=== PATIENT | female | born 1950 | race Hispanic/Latino ===

== ENCOUNTER 2016-07-28 10:39 | Inpatient (IN) | payer MEDICARE, OTHER ==
--- NOTE | 2016-07-28 11:09 | Emergency Department Report ---
ED Lower Extremity HPI - General Chief Complaint: Fall Stated Complaint: FALL Time Seen by Provider: 07/28/16 10:53 Source: patient Mode of arrival: Stretcher Limitations: No Limitations - History of Present Illness MD Complaint: hip injury, thigh injury Onset/Timin -: Sudden, hour(s) Injury: Hip: Right, Pelvis: Right, Thigh: Right, Leg: Right Type of Injury: inversion Place: work Severity: moderate Severity scale (0 -10): 5 Improves With: nothing Worsens With: weight bearing, movement, palpation Context: fall Associated Symptoms: snap/pop sensation, able to partially bear weight. denies : swelling, numbness, tingling, unable to bear weight - Related Data Home Medications Medication Instructions Recorded Confirmed Last Taken No Known Home Medications [No 07/28/16 07/28/16 Unknown Reported Home Medications] Allergies Allergy/AdvReac Type Severity Reaction Status Date / Time No Known Allergies Allergy Verified 07/28/16 12:08 ED Review of Systems ROS: Stated complaint: FALL Other details as noted in HPI Comment: All other systems reviewed and negative ED Past Medical Hx - Past Medical History Previous Medical History?: No - Social History Smoking Status: Never Smoker - Medications Home Medications: Home Medications Medication Instructions Recorded Confirmed Last Taken Type No Known Home Medications [No 07/28/16 07/28/16 Unknown History Reported Home Medications] ED Physical Exam - General Limitations: No Limitations General appearance: alert, in no apparent distress - Head Head exam: Present: atraumatic, normocephalic - Eye Eye exam: Present: normal appearance - ENT ENT exam: Present: mucous membranes moist - Neck Neck exam: Present: normal inspection - Respiratory Respiratory exam: Present: normal lung sounds bilaterally. Absent: respiratory distress - Cardiovascular Cardiovascular Exam: Present: regular rate, normal rhythm. Absent: systolic murmur, diastolic murmur, rubs, gallop - GI/Abdominal GI/Abdominal exam: Present: soft, normal bowel sounds - Extremities Exam Extremities exam: Present: tenderness (tednerness in the groin area / right hip , decreaso rom due to pain), normal capillary refill. Absent: full ROM, pedal edema, joint swelling, calf tenderness - Back Exam Back exam: Present: normal inspection - Neurological Exam Neurological exam: Present: alert, oriented X3 - Psychiatric Psychiatric exam: Present: normal affect, normal mood - Skin Skin exam: Present: warm, dry, intact, normal color. Absent: rash ED Course Vital Signs 07/28/16 07/28/16 10:44 11:48 Pulse Rate 78 Respiratory 16 16 Rate Blood Pressure 134/75 O2 Sat by Pulse 100 100 Oximetry ED Lower Extremity MDM - Lab Data Result diagrams: 07/28/16 12:16 - EKG Data -: EKG Interpreted by Me EKG shows normal: sinus rhythm Rate: normal - EKG Data When compared to previous EKG there are: no significant change Interpretation: no acute changes - Radiology Data Radiology results: report reviewed, image reviewed - Medical Decision Making will need admission for femur fracture/ talk to ortho at 1130am, and agree with plan fro admission, will talk to hospitalist to admit to their service. Critical care attestation.: If time is entered above; I have spent that time in minutes in the direct care of this critically ill patient, excluding procedure time. ED Disposition Clinical Impression: Femur fracture, left Disposition: OP ADMITTED IP TO THIS HOSP Is pt being admited?: Yes Does the pt Need Aspirin: No Condition: Good Referrals: PRIMARY CARE, [Primary Care Provider] - 3-5 Days Time of Disposition: 12:49
--- NOTE | 2016-07-28 11:11 | Admit Criteria Form ---
Admission Criteria Documentation: MUSCULOSKELETAL DISEASE GRG Clinical Indications for Admission to Inpatient Care (Place 'X' for any and all applicable criteria): Hospital admission is needed for appropriate care of the patient because of 1 or more of the following: [ X]I. Fracture, dislocation, or other musculoskeletal injury requiring inpatient care(medical) as indicated by 1 or more of the following(4)(5)(6)(7) [ ]a) Vertebral fracture requiring observation for instability or neurologic compromise (8) [ ]b) Compartment syndrome (proven or cannot be ruled out during observation level of care) (9) [ ]c) Limb-threatening injury [ X]d) Major injury requiring inpatient stabilization such as traction initiation or external fixation before internal fixation or closure of complex or open fracture [ ]e) Major injury requiring inpatient treatment after emergency or observation level care (as appropriate) [ ]f) Severe pain requiring acute inpatient management [ ]g) Injury with suspicion of abuse or neglect (eg., child, dependent elderly) [ ]II. Newly diagnosed or suspected bone, joint, or orthopedic device infection (e.g., osteomyelitis, septic arthritis) needing 1 or more of the following(1)(2)(3) [ ]a) IV antibiotics that cannot be initiated in other than inpatient setting (e.g., patient too unstable or home infusion not available) [ ]b) Device removal or replacement [ ]c) Bone or soft tissue debridement [ ]d) Joint drainage (drain placement or repetitive aspirations) [ ]III. Severe rheumatologic disease (e.g., systemic lupus erythematosus, rheumatoid arthritis) with complications or comorbidities (Also use Optimal Recovery Care Criteria or General Recovery Criteria as appropriate on the basis of predominant condition), including 1 or more of the following( 10)(11)(12)(13) [ ]a) Severe infection (e.g., ELECTROMECHANICAL TECHNOLOGIST infection, sepsis) (14) [ ]b) Respiratory complications, including 1 or more of the following : [ ]i) Pleural effusion with respiratory compromise [ ]ii) Pulmonary hypertension with congestive failure [ ]iii) Respiratory failure [ ]iv) Pulmonary hemorrhage (15) [ ]c) Hematologic disease, including 1 or more of the following: [ ]i) Coagulopathy with bleeding [ ]ii) Thrombosis with hypercoagulable state [ ]iii) Thrombotic thrombocytopenic purpura [ ]d) Cerebritis with seizures, psychosis, or other severe abnormalities [ ]e) Vertebral destruction with monitoring needed for cervical myelopathy& possible respiratory compromise [ ]f) Exacerbation that requires inpatient treatment (e.g., intravenous immunosuppression) (16) [ ]g) Acute renal failure [ ]h) Cerebritis with seizures, psychosis, Altered mental status, or other neurologic abnormalities [ ]i) Pericardial effusion with tamponade [ ]j) Vertebral destruction, with monitoring needed for cervical myelopathy and possible respiratory compromise [ ]IV. Severe vasculitis with complications or comorbidities (Also use Optimal Recovery Care Criteria General Recovery Criteria as appropriate on the basis of predominant condition), including 1 or more of the following(11)(12)(17)(18)(19)(20) [ ]a) Exacerbation that requires inpatient treatment (e.g., intravenous immunosuppression) (19)(21) [ ]b) Pulmonary hemorrhage (15) [ ]c) ELECTROMECHANICAL TECHNOLOGIST vasculitis with seizures, psychosis, Altered mental status that is severe or persistent, or other severe abnormalities (22) [ ]d) Cerebral infarction [ ]e) Gastrointestinal ischemia [ ]f) Gangrene or threatened amputation [ ]g) Renal failure (16) [ ]h) Other significant complications of vasculitis ( eg., tissue or organ ischemia, organ dysfunction ) [ ]V. Severe myopathy as indicated by 1 or more of the following (28)(29) [ ]a) New onset of airway compromise or inability to swallow [ ]b) Respiratory deterioration with observation needed for impending respiratory failure [ ]c) Exacerbation that requires inpatient treatment (e.g., intravenous immunosuppression) [ ]. Severe crystal gout (arthropathy) indicated by 1 or more of the following (23)(24) [ ]a) Severe pain requiring acute inpatient management [ ]b) Exacerbation that requires inpatient treatment (e.g., intravenous treatment) [ ]VII.Rhabdomyolysis and 1 or more of the following (25)(26)(27) [ ]a) Acute renal failure [ ]b) Need for intravenous hydration after emergency or observation level care (as appropriate) [ ]c) Inability to maintain oral hydration [ ]d) Change in mental status [ ]e) Electrolyte abnormality that remains after emergency or observation level care (as appropriate) [ ]VIII Post amputation complication, as indicated by ANY ONE of the following [ ]a) Infection [ ]b) Dehiscence [ ]c) Myodesis failure [ ]IX. Severe pain requiring acute inpatient management due to musculoskeletal condition [ ]X. Musculoskeletal Disease and ALL of the following: [ ]a) Symptom or finding for which emergency and observation care have failed or are not considered appropriate (Use General Criteria: Observation Care as appropriate) [ ]b) Presence of ANY ONE of the following [ ]i) A General Admission Criteria [ ]ii) A Pediatric General Admission Criteria The original [facility] [email or web address] content created by [facility] [employer] has been revised. The portions of the content which have been revised are identified through the use of italic text or in bold, and [facility] has neither reviewed nor approved the modified material. All other unmodified content is copyright [facility] [employer]. Please see references footnoted in the original [facility] edition 2016 Admission Criteria Met: Yes
--- NOTE | 2016-07-28 11:33 | XRay Report ---
LEFT HIP RADIOGRAPHS INDICATION: Hip rotation and pain. COMPARISON: None similar. FINDINGS: AP views of the pelvis and the left hip demonstrate left proximal femoral shaft fracture with cortical offset of approximately 1.4 cm. Another approximately 2 cm fracture fragment also displaced medially, projecting just beneath the left femoral neck. Femoral neck outer cortical subtle irregularity as well, nonspecific. Few pelvic phleboliths. Intact remainder imaged pelvis. CONCLUSION: Acute left proximal femoral shaft comminuted fracture with displacement, as described. Thank you for the opportunity to participate in this patient's care.
[2016-07-28] MEDS ORDERED: ZOFRAN IV ONE (12:05)
[2016-07-28] MEDS ORDERED: MORPHINE IV ONE (12:05)
[2016-07-28] MEDS ORDERED: NACL 0.9% 1000 ML 1,000 ML IV ONE (12:05)
[2016-07-28] MEDS ORDERED: ZOFRAN ONE (12:06)
[2016-07-28] MEDS ORDERED: MORPHINE ONE (12:06)
[2016-07-28 12:41] LABS: Basophils % (Auto) 0.7 % (0.0-1.8); Eosinophils % (Auto) 0.3 % (0.0-4.3); Hematocrit 41.6 % (30.3-42.9); Hemoglobin 13.6 gm/dl (10.1-14.3); Mean Corpuscular HGB Conc 33 % (30-34); Mean Corpuscular Hemoglobin 27 pg (28-32); Mean Corpuscular Volume 81 fl (79-97); Platelet Count 222 K/mm3 (140-440); Red Blood Count 5.11 M/mm3 (3.65-5.03); Red Cell Distribution Width 13.7 % (13.2-15.2)
[2016-07-28] MEDS ORDERED: TYLENOL ONE (12:41)
--- NOTE | 2016-07-28 12:44 | XRay Report ---
CHEST ONE VIEW INDICATION: Fall. Left hip fracture. COMPARISON: None similar. FINDINGS: Portable, single, frontal chest radiograph demonstrates normal cardiomediastinal silhouette. Clear lungs. Unremarkable bones. Various extrinsic artifacts. CONCLUSION: No acute disease in the chest. Thank you for the opportunity to participate in this patient's care.
[2016-07-28] MEDS ORDERED: TYLENOL PO ONE (12:46)
[2016-07-28 12:52] LABS: INR 1.02 (0.87-1.13)
[2016-07-28 12:53] LABS: Partial Thromboplastin Time 27.3 Sec. (24.2-36.6)
[2016-07-28 12:55] LABS: Alanine Aminotransferase 24 units/L (7-56); Albumin 4.1 g/dL (3.9-5); Albumin/Globulin Ratio 1.4 %; Alkaline Phosphatase 74 units/L (35-129); Anion Gap 21 mmol/L; Blood Urea Nitrogen 12 mg/dL (7-17); Carbon Dioxide 23 mmol/L (22-30); Chloride 94.1 mmol/L (98-107); Glucose 109 mg/dL (65-100); Potassium 4.3 mmol/L (3.6-5.0); Sodium 134 mmol/L (137-145)
[2016-07-28] MEDS ORDERED: LOVENOX SUB-Q SCH (15:00)
--- NOTE | 2016-07-28 15:05 | History and Physical Report ---
History of Present Illness Date of examination: 07/28/16 Date of admission: 07/28/16 13:22 Chief complaint: 07/28/16 History of present illness: 66-year-old female presented to the ED after a fall. Patient verbalized she was walking through the lobby of the hospital and someone called to her as she turned to acknowledge the person she felt herself slipping, lost balance and fell. Patient reported she has no significant medical history. Patient denies past falls. Patient denies dizziness, headache, fever, nausea and vomiting. Patient complains of left femoral pain and extra strength Tylenol given per patient's request. Pt refused stronger pain medicine. Past History Past Medical History: No medical history Past Surgical History: Other (Ankle surgery at the age of 89 years old) Social history: no significant social history Family history: other Medications and Allergies Allergies Allergy/AdvReac Type Severity Reaction Status Date / Time No Known Allergies Allergy Verified 07/28/16 12:08 Home Medications Medication Instructions Recorded Confirmed Last Taken Type No Known Home Medications [No 07/28/16 07/28/16 Unknown History Reported Home Medications] Active Meds: Active Medications Enoxaparin Sodium (Lovenox) 40 mg SUB-Q QDAY SANAM Review of Systems Constitutional: no fever, no chills, no fatigue Ears, nose, mouth and throat: deferred Breasts: deferred Cardiovascular: no chest pain, no syncope, no lightheadedness, no high blood pressure Respiratory: no cough, no shortness of breath Gastrointestinal: no abdominal pain Musculoskeletal: no frequent falls Integumentary: deferred Neurological: no head injury, no syncope, no headaches Psychiatric: no anxiety Allergic/Immunologic: no seasonal allergies Exam - Constitutional Vitals: Temp Pulse Resp BP Pulse Ox 78 16 134/75 100 07/28/16 10:44 07/28/16 12:40 07/28/16 10:44 07/28/16 11:48 General appearance: Present: no acute distress - EENT Eyes: Present: PERRL ENT: hearing intact, clear oral mucosa - Neck Neck: Present: supple, normal ROM - Respiratory Respiratory effort: normal - Cardiovascular Heart Sounds: Present: S1 & S2. Absent: rub, click - Extremities Extremities: No edema - Abdominal General gastrointestinal: Present: soft, non-tender, non-distended, normal bowel sounds - Rectal Rectal Exam: deferred - Integumentary Integumentary: Present: clear, warm, dry - Musculoskeletal Musculoskeletal: other (pain to the left femoral ) - Psychiatric Psychiatric: appropriate mood/affect, intact judgment & insight - Neurologic Neurologic: other - Allied Health Allied health notes reviewed: nursing Results - Labs CBC & Chem 7: 07/28/16 12:16 07/28/16 12:16 Labs: Laboratory Last Values WBC 11.0 K/mm3 (4.5-11.0) 07/28/16 12:16 RBC 5.11 M/mm3 (3.65-5.03) H 07/28/16 12:16 Hgb 13.6 gm/dl (10.1-14.3) 07/28/16 12:16 Hct 41.6 % (30.3-42.9) 07/28/16 12:16 MCV 81 fl (79-97) 07/28/16 12:16 MCH 27 pg (28-32) L 07/28/16 12:16 MCHC 33 % (30-34) 07/28/16 12:16 RDW 13.7 % (13.2-15.2) 07/28/16 12:16 Plt Count 222 K/mm3 (140-440) 07/28/16 12:16 Lymph % (Auto) 10.1 % (13.4-35.0) L 07/28/16 12:16 Briscoe % (Auto) 5.1 % (0.0-7.3) 07/28/16 12:16 Eos % (Auto) 0.3 % (0.0-4.3) 07/28/16 12:16 Baso % (Auto) 0.7 % (0.0-1.8) 07/28/16 12:16 Lymph # 1.1 K/mm3 (1.2-5.4) L 07/28/16 12:16 Briscoe # 0.6 K/mm3 (0.0-0.8) 07/28/16 12:16 Eos # 0.0 K/mm3 (0.0-0.4) 07/28/16 12:16 Baso # 0.1 K/mm3 (0.0-0.1) 07/28/16 12:16 Seg Neutrophils % 83.8 % (40.0-70.0) H 07/28/16 12:16 Seg Neutrophils # 9.2 K/mm3 (1.8-7.7) H 07/28/16 12:16 PT 13.3 Sec. (12.2-14.9) 07/28/16 12:16 INR 1.02 (0.87-1.13) 07/28/16 12:16 APTT 27.3 Sec. (24.2-36.6) 07/28/16 12:16 Sodium 134 mmol/L (137-145) L 07/28/16 12:16 Potassium 4.3 mmol/L (3.6-5.0) 07/28/16 12:16 Chloride 94.1 mmol/L (98-107) L 07/28/16 12:16 Carbon Dioxide 23 mmol/L (22-30) 07/28/16 12:16 Anion Gap 21 mmol/L 07/28/16 12:16 BUN 12 mg/dL (7-17) 07/28/16 12:16 Creatinine 0.6 mg/dL (0.7-1.2) L 07/28/16 12:16 Estimated GFR > 60 ml/min 07/28/16 12:16 BUN/Creatinine Ratio 20.00 % 07/28/16 12:16 Glucose 109 mg/dL (65-100) H 07/28/16 12:16 Calcium 9.0 mg/dL (8.4-10.2) 07/28/16 12:16 Total Bilirubin 0.40 mg/dL (0.1-1.2) 07/28/16 12:16 AST 37 units/L (5-40) 07/28/16 12:16 ALT 24 units/L (7-56) 07/28/16 12:16 Alkaline Phosphatase 74 units/L (35-129) 07/28/16 12:16 Total Protein 7.0 g/dL (6.3-8.2) 07/28/16 12:16 Albumin 4.1 g/dL (3.9-5) 07/28/16 12:16 Albumin/Globulin Ratio 1.4 % 07/28/16 12:16 Blood Type B POSITIVE 07/28/16 12:16 Antibody Screen Not Reportable 07/28/16 12:16 GEORGIE Antibody Screen Negative 07/28/16 12:16 - Imaging and Cardiology EKG: report reviewed (EKG NSR) Chest x-ray: report reviewed (No acute findings noted), other (Left Hip x-ray - Left proximal femoral shaft comminuted fracture with displacement) Assessment and Plan Assessment and plan: 66-year-old female presented to the ED after a fall. Patient verbalized she was walking this morning around 9am, and someone called to her as she turned to acknowledge the person she felt herself slipping, lost balance and fell. Patient reported she has no significant medical history. Patient denies past falls. Patient denies dizziness, headache, fever, nausea and vomiting. Patient complains of left femoral pain and extra strength Tylenol given per patient's request. Pt refused stronger pain medicine. On exam, pain was controlled. No ecchymosis noted, firmness, non pitting edema 3+ noted and ice pack applied to Left femoral area. Pt able to wiggle her left foot and toes on command. B/L Positive pedal pulses noted. 1. Left proximal femoral shaft fracture - Pain control. NPO after midnight. Consult Ortho for surgical fixation. 2. DVT prophylaxis- Lovenox SQ, daily Advance Directives: No (Full code) VTE prophylaxis?: Chemical Plan of care discussed with patient/family: Yes
[2016-07-28] MEDS ORDERED: LOVENOX SUB-Q ONE (15:14)
--- NOTE | 2016-07-28 16:10 | Consultation ---
History of Present Illness - [facility] Consult date: 07/28/16 Consult reason: fracture History of present illness: Accidental fall in the hospital, unable to walk. Evaluation in emergency room showed subtrochanteric fracture left hip, admitted for management of the same. Past History Past Surgical History: Other (Ankle surgery at the age of 89 years old) Social history: no significant social history Family history: other Medications and Allergies Allergies Allergy/AdvReac Type Severity Reaction Status Date / Time enoxaparin sodium AdvReac Severe SEVERE Verified 07/29/16 07:41 [From Lovenox] MUSCLE CRAMPS Home Medications Medication Instructions Recorded Confirmed Last Taken Type traMADol [Ultram 50 MG tab] 50 mg PO Q6HR PRN #50 tablet 07/30/16 Unknown Rx Alendronate Sodium [Fosamax] 70 mg PO QWEEK #4 tablet 07/31/16 Unknown Rx Docusate Sodium [Colace CAP] 100 mg PO BID #60 capsule 07/31/16 Unknown Rx Ferrous Gluconate [Fergon 325 MG 324 mg PO QDAY #30 tablet 07/31/16 Unknown Rx tab] Multivitamin Tab [Multiple Vitamin 1 each PO QDAY #30 tablet 07/31/16 Unknown Rx TAB (Theragran)] Promethazine [Phenergan SUPPOS] 25 mg [place] Q6H PRN #20 supp.rect 07/31/16 Unknown Rx Ranitidine HCl [Acid Control] 150 mg PO DAILY #30 tablet 07/31/16 Unknown Rx oxyCODONE /ACETAMINOPHEN [Percocet 1 tab PO Q6H PRN #15 tablet 07/31/16 Unknown Rx 5/325 mg] Active Meds: Active Medications Enoxaparin Sodium (Lovenox) 40 mg SUB-Q QDAY SANAM Last Admin: 07/28/16 15:22 Dose: 40 mg Review of Systems All systems: negative Physical Examination - Hip left Tenderness with palpation: other (Left hip with shortening, external rotation deformity. Painful limitation of movement, no neurovascular deficit.) Assessment and Plan - Patient Problems (1) Femur fracture, left Current Visit: Yes Status: Acute Qualifiers: Encounter type: initial encounter Femur location: F Fracture type: closed Open fracture type: O Fracture morphology: F Fracture alignment: F Salter-Berumen Fracture Type: S Fracture healing: F Plan to address problem: Internal fixation, will schedule
[2016-07-28] MEDS ORDERED: ANCEF/STERILE WATER 2 GM/20 ML IV NR (17:00)
--- NOTE | 2016-07-28 17:25 | Anesthesia Consultation ---
Anesthesia Consult and Med Hx Date of service: 07/28/16 - Airway Anesthetic Teeth Evaluation: Crowns (multiple crowns), Partials (upper and lower ) ROM Head & Neck: Adequate Mental/Hyoid Distance: Adequate Mallampati Class: Class III Intubation Access Assessment: Possibly Difficult - Pre-Operative Health Status ASA Pre-Surgery Classification: ASA1 Proposed Anesthetic Plan: General - Additional Comments Anesthesia Medical History Comments: no medical history
[2016-07-28] MEDS ORDERED: TYLENOL PO PRN (18:54)
[2016-07-29 05:38] LABS: Anion Gap 18 mmol/L; Blood Urea Nitrogen 7 mg/dL (7-17); Calcium 8.5 mg/dL (8.4-10.2); Carbon Dioxide 23 mmol/L (22-30); Chloride 98.3 mmol/L (98-107); Glucose 118 mg/dL (65-100); Potassium 3.8 mmol/L (3.6-5.0); Sodium 135 mmol/L (137-145)
[2016-07-29 05:56] LABS: Basophils % (Auto) 0.7 % (0.0-1.8); Eosinophils % (Auto) 0.2 % (0.0-4.3); Hematocrit 37.6 % (30.3-42.9); Hemoglobin 12.4 gm/dl (10.1-14.3); Mean Corpuscular HGB Conc 33 % (30-34); Mean Corpuscular Hemoglobin 26 pg (28-32); Mean Corpuscular Volume 80 fl (79-97); Platelet Count 178 K/mm3 (140-440); Red Blood Count 4.68 M/mm3 (3.65-5.03); Red Cell Distribution Width 13.4 % (13.2-15.2); White Blood Count 10.5 K/mm3 (4.5-11.0)
[2016-07-29] MEDS ORDERED: DILAUDID ONE (06:47)
[2016-07-29] MEDS ORDERED: DIPRIVAN 10 MG/ML IV ONE (06:47)
[2016-07-29] MEDS ORDERED: XYLOCAINE MPF 2% ONE (06:47)
[2016-07-29] MEDS ORDERED: PEPCID IV NR (07:00)
[2016-07-29] MEDS ORDERED: VERSED IV NR (07:00)
--- NOTE | 2016-07-29 07:20 | Anesthesia Day of Surgery ---
Anesthesia Day of Surgery - Day of Surgery Patient Examined: Yes Patient H&P Reviewed: Yes Patient is NPO: Yes
[2016-07-29] MEDS: LACTATED RINGERS 1,000 ML IV SCH ×2 (07:27→18:10)
[2016-07-29] MEDS ORDERED: ZOFRAN IV PRN (07:30)
[2016-07-29] MEDS ORDERED: DILAUDID IV PRN (07:30)
[2016-07-29] MEDS ORDERED: DECADRON ONE (08:00)
[2016-07-29] MEDS ORDERED: ZOFRAN ONE (08:00)
[2016-07-29] MEDS ORDERED: NACL P/F VIAL (10 ML) 10 ML ONE (08:51)
[2016-07-29] MEDS ORDERED: ePHEDrine SULFATE ONE (08:51)
--- NOTE | 2016-07-29 09:31 | Procedure Note ---
Date of procedure: 07/29/16 Pre-op diagnosis: subtrocf fx left hip Post-op diagnosis: same Procedure: TFN nail fixation left hip Anesthesia: GETA Surgeon: ASH KHOURY Estimated blood loss: 50-100ml Pathology: none Condition: stable Disposition: PACU
--- NOTE | 2016-07-29 10:12 | Post Anesthesia Evaluation ---
- Post Anesthesia Evaluation Patient Participated: Yes Airway Patent: Yes Stable Respiratory Function: Yes Nausea/Vomiting: No Temp > 96.8F: Yes Pain Manageable: Yes Adequeate Hydration: Yes Anesthesia Complications: No Block Receding Appropriately: Not Applicable Patient on Ventilator: No
[2016-07-29] MEDS: TORADOL IV PRN ×2 (11:05→18:10)
--- NOTE | 2016-07-29 11:10 | XRay Report ---
Operative left hip: hip fracture AP and lateral views demonstrate intertrochanteric fractures. The components are well aligned with reduction in the angulation seen on prior study of July 28. The femoral head is well-positioned. Impression: Left hip fracture.
--- NOTE | 2016-07-29 11:13 | XRay Report ---
Operative femur: Hip nailing There is a hip nail in place through the intertrochanteric fractures. There is good alignment. The femoral head is well-positioned. The femoral component is a long medullary mercy with a cross screw anchoring it to the distal shaft. No apparent complication.
--- NOTE | 2016-07-29 12:08 | Progress Note ---
Subjective Date of service: 07/29/16 Principal diagnosis: Fx proximal femoral shaft Interval history: assessment and plan: displaced acute fracture of proximal shaft of left Femur: s/p surgery patient has borderlinr hypotension. ?? post anesthesia effect. continue IV fluids monitor H/H cont prn pain medication Objective - Constitutional Vitals: Vital Signs - 12hr 07/29/16 07/29/16 07/29/16 07:05 07:46 09:51 Temperature 99.3 F 99.3 F 97.8 F Pulse Rate 78 78 92 H Pulse Rate [ Left] Respiratory 16 16 18 Rate Blood Pressure 150/84 150/84 89/55 Blood Pressure [Left Arm] O2 Sat by Pulse 95 95 100 Oximetry 07/29/16 07/29/16 07/29/16 09:55 10:00 10:05 Temperature Pulse Rate 100 H 85 80 Pulse Rate [ Left] Respiratory 16 16 14 Rate Blood Pressure 93/64 105/70 109/66 Blood Pressure [Left Arm] O2 Sat by Pulse 100 100 100 Oximetry 07/29/16 07/29/16 07/29/16 10:10 10:15 10:30 Temperature Pulse Rate 82 80 85 Pulse Rate [ Left] Respiratory 14 16 16 Rate Blood Pressure 95/62 85/50 75/49 Blood Pressure [Left Arm] O2 Sat by Pulse 100 100 92 Oximetry 07/29/16 07/29/16 07/29/16 10:45 11:00 11:05 Temperature Pulse Rate 78 86 Pulse Rate [ Left] Respiratory 20 20 20 Rate Blood Pressure 91/57 97/64 Blood Pressure [Left Arm] O2 Sat by Pulse 96 96 Oximetry 07/29/16 07/29/16 11:20 11:42 Temperature 97.8 F Pulse Rate Pulse Rate [ 78 Left] Respiratory 18 18 Rate Blood Pressure Blood Pressure 88/58 [Left Arm] O2 Sat by Pulse 95 Oximetry General appearance: Present: no acute distress - EENT Eyes: PERRL, EOM intact ENT: hearing intact, clear oral mucosa - Neck Neck: supple, normal ROM, no masses or JVD, no carotid bruits - Respiratory Respiratory effort: normal Respiratory: bilateral: CTA - Cardiovascular Rhythm: regular Heart Sounds: Present: S1 & S2 Extremities: No edema - Gastrointestinal General gastrointestinal: Present: soft, non-tender. Absent: hepatomegaly, splenomegaly - Integumentary Integumentary: clear - Neurologic Neurologic: no focal deficits, moves all extremities - Labs CBC & Chem 7: 07/29/16 04:51 07/29/16 04:51 Labs: Abnormal lab results 07/29/16 07/29/16 Range/Units 04:51 04:51 MCH 26 L (28-32) pg Lymph % (Auto) 8.4 L (13.4-35.0) % Forrest % (Auto) 8.6 H (0.0-7.3) % Lymph # 0.9 L (1.2-5.4) K/mm3 Forrest # 0.9 H (0.0-0.8) K/mm3 Seg Neutrophils % 82.1 H (40.0-70.0) % Seg Neutrophils # 8.6 H (1.8-7.7) K/mm3 Sodium 135 L (137-145) mmol/L Creatinine 0.4 L (0.7-1.2) mg/dL Glucose 118 H (65-100) mg/dL
[2016-07-29] MEDS ORDERED: AMBIEN PO PRN (20:43)
[2016-07-29] MEDS ORDERED: MORPHINE IV PRN (20:43)
[2016-07-29] MEDS ORDERED: PERCOCET 5/325 PO PRN (20:43)
[2016-07-29] MEDS ORDERED: TORADOL IV PRN ×2 (20:43)
[2016-07-29] MEDS ORDERED: PHENERGAN PR PRN (20:43)
[2016-07-29] MEDS ORDERED: SODIUM CHLORIDE FLUSH SYRINGE 10 ML IV PRN (20:43)
[2016-07-29] MEDS: THERAGRAN Tab PO SCH (22:21)
[2016-07-29] MEDS: ASPIRIN PO SCH (22:21)
[2016-07-29] MEDS: COLACE PO SCH (22:22)
[2016-07-30] MEDS: COLACE PO SCH ×3 (01:08→22:28)
[2016-07-30] MEDS: ANCEF/NS 1 GM/50 ML 1 GM/50 ML BAG IV SCH ×2 (02:10→10:45)
[2016-07-30] MEDS: LACTATED RINGERS 1,000 ML IV SCH ×2 (02:15→16:35)
[2016-07-30 07:23] LABS: Hematocrit 22.4 % (30.3-42.9); Hemoglobin 7.4 gm/dl (10.1-14.3)
[2016-07-30 07:41] LABS: Anion Gap 14 mmol/L; BUN/Creatinine Ratio 16.66; Blood Urea Nitrogen 10 mg/dL (7-17); Calcium 7.6 mg/dL (8.4-10.2); Carbon Dioxide 25 mmol/L (22-30); Chloride 96.2 mmol/L (98-107); Glucose 117 mg/dL (65-100); Potassium 4.3 mmol/L (3.6-5.0); Sodium 131 mmol/L (137-145)
[2016-07-30] MEDS: THERAGRAN Tab PO SCH (10:29)
[2016-07-30] MEDS: ASPIRIN PO SCH ×2 (10:29→22:28)
--- NOTE | 2016-07-30 12:03 | Operative Report ---
PREOPERATIVE DIAGNOSIS: Intertrochanteric/subtrochanteric fracture, left hip. POSTOPERATIVE DIAGNOSIS: Intertrochanteric/subtrochanteric fracture, left hip. OPERATIVE PROCEDURE: Manipulation and closed reduction and internal fixation using TFN nail system. SURGEON: Dr. Ryan Burnham [employer] OPERATOR: Emily Fregoso CSA. ANESTHESIA: General. BLOOD LOSS: Approximately 50 mL PROCEDURE IN DETAIL: The patient was taken to surgery suite, satisfactory analgesia obtained with general anesthetics. She was positioned on the fracture table. Fracture was manipulated by traction with adduction, internal rotation of the distal fragment and under fluoroscopy fracture reduction and alignment is confirmed. The left hip, thigh area was prepped with ChloraPrep, satisfactorily draped. Incision was made starting at the tip of the trochanter and extending proximally for about 2 cm, deepened and a guidepin was positioned on the tip of the trochanter and advanced into metaphyseal region of the femoral medullary canal under fluoroscopy control. The trochanteric region and metaphysis then reamed to 14 mm to accommodate a TFN nail. A longer guide pin was then exchanged as it was elected to use a longer nail to give better stability. Nail length was measured at 360 mm and with the flexible reamer femoral medullary canal was reamed to 12.5 mm diameter, nail size 11 mm diameter, 360 mm length was then applied across the fracture site under fluoroscopy control. Guide pin was positioned across the fracture site into the femoral neck, guide pin positioned just proximal to the inferior calcar, centrally positioned on the AP and lateral plane. Guide pin length measured at 90 mm, near cortex was reamed and after reaming the femoral neck helical screw 90 mm was applied into the femoral neck. This was then locked in place and the nail was proximally stabilized. The extremity was then brought into neutral position, distal rotation was corrected and distal locking screw was then applied in standard fashion using a 48 mm cortical screw. AP and lateral fluoroscopy showing satisfactory reduction and stabilization of the fracture. Following irrigation, the wound was closed in layers in the standard fashion. Sterile dressings were applied. The patient was transferred to recovery room in satisfactory condition, tolerated the procedure well and at the completion of procedure, counts were accurate. JOB# [id number] RO/AMBER SILVA
--- NOTE | 2016-07-30 12:12 | Progress Note ---
Assessment and Plan Assessment and plan: Displaced acute fracture of proximal shaft of left Femur: s/p surgery. Continue per orthopedics. PT/OT. Anemia. Etiology likely secondary to suspected acute blood loss from surgery. We will transfuse for hemoglobin less than 7.0 History Interval history: No new issues overnight. Hospitalist Physical - Constitutional Vitals: Temp Pulse Resp BP Pulse Ox 98.8 F 97 H 16 109/68 94 07/30/16 07:00 07/30/16 07:00 07/30/16 07:00 07/30/16 07:00 07/30/16 07:00 General appearance: Present: no acute distress - EENT Eyes: Present: PERRL, EOM intact ENT: hearing intact, clear oral mucosa, dentition normal - Neck Neck: Present: supple, normal ROM - Respiratory Respiratory effort: normal Respiratory: bilateral: CTA - Cardiovascular Rhythm: regular Heart Sounds: Present: S1 & S2. Absent: gallop, rub - Extremities Extremities: no ischemia, No edema, Full ROM - Abdominal General gastrointestinal: soft, non-tender, non-distended, normal bowel sounds - Integumentary Integumentary: Present: clear, warm, dry - Neurologic Neurologic: CNII-XII intact, moves all extremities Results - Labs CBC & Chem 7: 07/30/16 06:55 07/30/16 06:55 Labs: Laboratory Last Values WBC 10.5 K/mm3 (4.5-11.0) 07/29/16 04:51 RBC 4.68 M/mm3 (3.65-5.03) 07/29/16 04:51 Hgb 7.4 gm/dl (10.1-14.3) L D 07/30/16 06:55 Hct 22.4 % (30.3-42.9) L D 07/30/16 06:55 MCV 80 fl (79-97) 07/29/16 04:51 MCH 26 pg (28-32) L 07/29/16 04:51 MCHC 33 % (30-34) 07/29/16 04:51 RDW 13.4 % (13.2-15.2) 07/29/16 04:51 Plt Count 178 K/mm3 (140-440) 07/29/16 04:51 Lymph % (Auto) 8.4 % (13.4-35.0) L 07/29/16 04:51 [place] % (Auto) 8.6 % (0.0-7.3) H 07/29/16 04:51 Eos % (Auto) 0.2 % (0.0-4.3) 07/29/16 04:51 Baso % (Auto) 0.7 % (0.0-1.8) 07/29/16 04:51 Lymph # 0.9 K/mm3 (1.2-5.4) L 07/29/16 04:51 [place] # 0.9 K/mm3 (0.0-0.8) H 07/29/16 04:51 Eos # 0.0 K/mm3 (0.0-0.4) 07/29/16 04:51 Baso # 0.1 K/mm3 (0.0-0.1) 07/29/16 04:51 Seg Neutrophils % 82.1 % (40.0-70.0) H 07/29/16 04:51 Seg Neutrophils # 8.6 K/mm3 (1.8-7.7) H 07/29/16 04:51 PT 13.3 Sec. (12.2-14.9) 07/28/16 12:16 INR 1.02 (0.87-1.13) 07/28/16 12:16 APTT 27.3 Sec. (24.2-36.6) 07/28/16 12:16 Sodium 131 mmol/L (137-145) L 07/30/16 06:55 Potassium 4.3 mmol/L (3.6-5.0) 07/30/16 06:55 Chloride 96.2 mmol/L (98-107) L 07/30/16 06:55 Carbon Dioxide 25 mmol/L (22-30) 07/30/16 06:55 Anion Gap 14 mmol/L 07/30/16 06:55 BUN 10 mg/dL (7-17) 07/30/16 06:55 Creatinine 0.6 mg/dL (0.7-1.2) L 07/30/16 06:55 Estimated GFR > 60 ml/min 07/30/16 06:55 BUN/Creatinine Ratio 16.66 % 07/30/16 06:55 Glucose 117 mg/dL (65-100) H 07/30/16 06:55 Calcium 7.6 mg/dL (8.4-10.2) L 07/30/16 06:55 Total Bilirubin 0.40 mg/dL (0.1-1.2) 07/28/16 12:16 AST 37 units/L (5-40) 07/28/16 12:16 ALT 24 units/L (7-56) 07/28/16 12:16 Alkaline Phosphatase 74 units/L (35-129) 07/28/16 12:16 Total Protein 7.0 g/dL (6.3-8.2) 07/28/16 12:16 Albumin 4.1 g/dL (3.9-5) 07/28/16 12:16 Albumin/Globulin Ratio 1.4 % 07/28/16 12:16 Blood Type B POSITIVE 07/28/16 12:16 Antibody Screen Not Reportable 07/28/16 12:16 GEORGIE Antibody Screen Negative 07/28/16 12:16
[2016-07-30] MEDS ORDERED: NACL 0.9% 500 ML 500 ML IV NR (13:32)
--- NOTE | 2016-07-30 14:07 | Progress Note ---
Assessment and Plan - Patient Problems (1) Femur fracture, left Current Visit: Yes Status: Acute Qualifiers: Encounter type: initial encounter Femur location: F Fracture type: closed Open fracture type: O Fracture morphology: F Fracture alignment: F Salter-Berumen Fracture Type: S Fracture healing: F Subjective Date of service: 07/30/16 Principal diagnosis: Fx proximal femoral shaft Interval history: Postop day 1, pain well-controlled, out of bed. Objective Vital signs: Vital Signs - 12hr 07/30/16 07/30/16 07/30/16 04:00 07:00 10:00 Temperature 98.1 F 98.8 F Pulse Rate [ 97 H Apical] Pulse Rate [ 92 H 97 H Left] Respiratory 18 16 Rate Blood Pressure 103/62 109/68 [Left Arm] O2 Sat by Pulse 100 94 100 Oximetry Narrative Exam: Surgical sites are clean, minimal swelling expected, no calf pain, tenderness. Tachycardic, had some drop in blood pressure while getting up, hemoglobin at 7.5. Possible to transition discussed with her. She is electing for any transfusion , therefore will continue to treat him with intravenous fluids, vitamin/and supplementation and will watch vital signs. Progressive amputation as tolerated. Once stable patient can be discharged to home with home health care , outpatient rehabilitation program, aspirin for DVT prophylaxis, tramadol for pain control; up to 25% weightbearing with crutches or walker. - Labs CBC & BMP: 07/31/16 09:46 07/30/16 06:55 Labs: Abnormal lab results 07/30/16 07/30/16 Range/Units 06:55 06:55 Hgb 7.4 L D (10.1-14.3) gm/dl Hct 22.4 L D (30.3-42.9) % Sodium 131 L (137-145) mmol/L Chloride 96.2 L (98-107) mmol/L Creatinine 0.6 L (0.7-1.2) mg/dL Glucose 117 H (65-100) mg/dL Calcium 7.6 L (8.4-10.2) mg/dL
--- NOTE | 2016-07-31 09:38 | Discharge Summary ---
Providers - Providers Date of Admission: 07/28/16 13:22 Date of discharge: 08/01/16 Attending physician: JUAN DIEGO WARD 07/29/16 20:43 Consult to Case Management [CONS] Routine Services Needed at Discharge: Physical Therapy DME Equipment Physical Therapy Evaluation and Treat [CONS] Routine Comment: wbat Reason For Exam: fx hip Weight bearing status?: Partial wt bearing Primary care physician: INVESTMENT STRATEGIST Hospitalization Reason for admission: hip fracture Condition: Good Hospital course: 66-year-old female presented to the ED after a fall. Patient verbalized she was walking through the lobby of the hospital and someone called to her as she turned to acknowledge the person she felt herself slipping, lost balance and fell. Patient reported she has no significant medical history. Patient denies past falls. Patient denies dizziness, headache, fever, nausea and vomiting. Patient suffered a slip trochanteric fracture of the left hip and underwent a TFN nail fixation of the left hip by orthopedics in consultation. Patient tolerated the procedure well postoperatively. Patient underwent physical therapy. Patient did not want to be transferred to rehabilitation facility and wanted to go home. Patient did have some anemia postoperatively and received 2 units PRBCs prior to discharge. Orthopedist was okay with the discharge plan. Patient will be discharged home with home health PT and is to follow-up with orthopedics as outpatient. Dedicated discharge time 31 minutes. Disposition: DISCHARGED TO HOME OR SELFCARE Time spent for discharge: 31 - Discharge Diagnoses (1) Anemia Status: Acute Qualifiers: Anemia type: iron deficiency Iron deficiency anemia type: I Vitamin B12 deficiency anemia type: V Folate deficiency anemia type: F Bone marrow failure anemia type: B Hemolytic anemia type: H Other causes of anemia: O (2) Femur fracture, left Status: Acute Qualifiers: Encounter type: initial encounter Femur location: F Fracture type: closed Open fracture type: O Fracture morphology: F Fracture alignment: F Salter-Berumen Fracture Type: S Fracture healing: F Core Measure Documentation - Palliative Care Palliative Care/ Comfort Measures: Not Applicable - Core Measures Any of the following diagnoses?: none Exam - Constitutional Vitals: Temp Pulse Resp BP Pulse Ox 98.0 F 84 20 112/69 99 07/31/16 06:55 07/31/16 06:55 07/31/16 06:55 07/31/16 06:55 05/21/17 06:55 General appearance: Present: no acute distress, well-nourished - EENT Eyes: Present: PERRL ENT: hearing intact, clear oral mucosa - Neck Neck: Present: supple, normal ROM - Respiratory Respiratory effort: normal Respiratory: bilateral: CTA - Cardiovascular Heart Sounds: Present: S1 & S2. Absent: rub, click - Extremities Extremities: pulses symmetrical, No edema Extremity abnormal: other (left hip dressing C/D/I) Peripheral Pulses: within normal limits - Abdominal General gastrointestinal: Present: soft, non-tender, non-distended, normal bowel sounds Female genitourinary: Present: normal - Integumentary Integumentary: Present: clear, warm, dry - Musculoskeletal Musculoskeletal: gait normal, strength equal bilaterally - Psychiatric Psychiatric: appropriate mood/affect, intact judgment & insight - Neurologic Neurologic: CNII-XII intact, moves all extremities Plan Activity: no restrictions Weight Bearing Status: Touch Down Weight Bearing Diet: regular Special Instructions: physical therapy, home health RN Durable Medical Equipment Needed Upon Discharge: Crutches, Walker-Rolling Follow up with: PRIMARY CAREMD [Primary Care Provider] - 3-5 Days ASH KHOURY MD [Staff Physician] - 7 Days Prescriptions: Alendronate Sodium [Fosamax] 70 mg PO QWEEK #4 tablet Docusate Sodium [Colace CAP] 100 mg PO BID #60 capsule Ferrous Gluconate [Fergon 325 MG tab] 324 mg PO QDAY #30 tablet Multivitamin Tab [Multiple Vitamin TAB (Theragran)] 1 each PO QDAY #30 tablet oxyCODONE /ACETAMINOPHEN [Percocet 5/325 mg] 1 tab PO Q6H PRN #15 tablet PRN Reason: Pain, Moderate (4-6) Promethazine [Phenergan SUPPOS] 25 mg TX Q6H PRN #20 supp.rect PRN Reason: Nausea And Vomiting Ranitidine HCl [Acid Control] 150 mg PO DAILY #30 tablet traMADol [Ultram 50 MG tab] 50 mg PO Q6HR PRN #50 tablet PRN Reason: Pain
[2016-07-31 10:06] LABS: Hematocrit 21.8 % (30.3-42.9); Hemoglobin 7.1 gm/dl (10.1-14.3)
[2016-07-31] MEDS: ASPIRIN PO SCH ×3 (11:22→23:20)
[2016-07-31] MEDS: PEPCID PO SCH (11:23)
[2016-07-31] MEDS: THERAGRAN Tab PO SCH (11:24)
[2016-07-31] MEDS: FERGON PO SCH (11:24)
[2016-07-31 19:09] LABS: Reticulocyte % 2.11 % (0.78-2.58)
[2016-07-31 19:44] LABS: Lactate Dehydrogenase 212 units/L (91-180)
[2016-07-31 19:46] LABS: Bilirubin,Direct < 0.2 mg/dL (0-0.2)
[2016-07-31] MEDS: COLACE PO SCH ×3 (22:41→23:21)
--- NOTE | 2016-08-01 08:48 | Progress Note ---
Assessment and Plan Displaced acute fracture of proximal shaft of left Femur: s/p surgery. Continue per orthopedics. PT/OT. Anemia. Etiology likely secondary to suspected acute blood loss from surgery. After discussion with the patient's primary fitting room associate Dr. Saxena, she decided to proceed with 2 units of PRBCs. Patient's reticulocyte count and bilirubin were noted to be normal suggesting no hemolysis. Patient will be discharged status post blood transfusion. - Patient Problems (1) Anemia Current Visit: Yes Status: Acute Qualifiers: Anemia type: iron deficiency Iron deficiency anemia type: I Vitamin B12 deficiency anemia type: V Folate deficiency anemia type: F Bone marrow failure anemia type: B Hemolytic anemia type: H Other causes of anemia: O (2) Femur fracture, left Current Visit: Yes Status: Acute Qualifiers: Encounter type: initial encounter Femur location: F Fracture type: closed Open fracture type: O Fracture morphology: F Fracture alignment: F Salter-Berumen Fracture Type: S Fracture healing: F Subjective Date of service: 07/31/16 Principal diagnosis: Fx proximal femoral shaft Interval history: No new issues overnight. Objective - Constitutional Vitals: Vital Signs - 12hr 08/01/16 08/01/16 00:00 07:00 Temperature 98.2 F 97 F L Pulse Rate [ 99 H 87 Left] Respiratory 18 16 Rate Blood Pressure 112/64 117/73 [Left Arm] O2 Sat by Pulse 94 97 Oximetry General appearance: Present: no acute distress, well-nourished - EENT Eyes: PERRL, EOM intact ENT: hearing intact, clear oral mucosa Ears: bilateral: normal - Neck Neck: supple, normal ROM - Respiratory Respiratory effort: normal Respiratory: bilateral: CTA - Breasts Breasts: normal - Cardiovascular Rhythm: regular Heart Sounds: Present: S1 & S2. Absent: gallop, rub Extremities: pulses intact, No edema, normal color, Full ROM - Gastrointestinal General gastrointestinal: Present: soft, non-tender, non-distended, normal bowel sounds - Genitourinary Female genitourinary: normal - Integumentary Integumentary: clear, warm, dry - Musculoskeletal Musculoskeletal: 1, strength equal bilaterally - Neurologic Neurologic: moves all extremities - Psychiatric Psychiatric: memory intact, appropriate mood/affect, intact judgment & insight - Labs CBC & Chem 7: 07/31/16 09:46 07/30/16 06:55 Labs: Abnormal lab results 07/31/16 07/31/16 Range/Units 09:46 18:59 Hgb 7.1 L (10.1-14.3) gm/dl Hct 21.8 L (30.3-42.9) % Lactate Dehydrogenase 212 H (91-180) units/L
[2016-08-01] MEDS: ASPIRIN PO SCH ×2 (09:53→22:28)
[2016-08-01] MEDS: PEPCID PO SCH (09:54)
[2016-08-01] MEDS: TYLENOL PO PRN ×2 (09:54→20:30)
[2016-08-01] MEDS: THERAGRAN Tab PO SCH (09:55)
[2016-08-01] MEDS: COLACE PO SCH ×2 (09:56→22:28)
[2016-08-01] MEDS: FERGON PO SCH (09:56)
[2016-08-01] MEDS ORDERED: NACL 0.9% 500 ML 500 ML IV ONE (13:00)
--- NOTE | 2016-08-01 18:10 | Progress Note ---
Assessment and Plan - Patient Problems (1) Femur fracture, left Current Visit: Yes Status: Acute Qualifiers: Encounter type: initial encounter Femur location: F Fracture type: closed Open fracture type: O Fracture morphology: F Fracture alignment: F Salter-Berumen Fracture Type: S Fracture healing: F Plan to address problem: We'll check her posttransfusion hemoglobin, plan discharge home with home health care/rehabilitation program; abductor and hip is weightbearing, DVT prophylaxis with aspirin, crutches or walker. Followup 7-10 days Subjective Date of service: 08/01/16 Principal diagnosis: Fx proximal femoral shaft Interval history: Postop fracture fixation left hip. Hemoglobin to 7.4, complaints of dizziness when standing up, therefore transfusion was ordered and 2 units of PRBCs being transfused. We'll check posttransfusion hemoglobin. Swelling involving the calf, thigh, no calf pain or tenderness, clinically negative for DVT. A duplex scan is done today also negative. Objective Vital signs: Vital Signs - 12hr 08/01/16 08/01/16 08/01/16 07:00 13:28 13:43 Temperature 97 F L 98.2 F 98.7 F Pulse Rate 98 H 82 Pulse Rate [ 87 Left] Respiratory 16 20 Rate Blood Pressure 107/72 Blood Pressure 117/73 [Left Arm] O2 Sat by Pulse 97 98 Oximetry 08/01/16 08/01/16 08/01/16 14:13 14:27 14:43 Temperature 98.6 F 98.2 F 98.6 F Pulse Rate 83 86 79 Pulse Rate [ Left] Respiratory 18 18 16 Rate Blood Pressure 103/74 113/72 102/70 Blood Pressure [Left Arm] O2 Sat by Pulse 99 98 Oximetry 08/01/16 08/01/16 08/01/16 15:13 15:43 16:00 Temperature 98.9 F 98.4 F 98.9 F Pulse Rate 80 80 Pulse Rate [ 82 Left] Respiratory 16 16 18 Rate Blood Pressure 108/76 106/75 Blood Pressure 133/79 [Left Arm] O2 Sat by Pulse 99 98 Oximetry 08/01/16 08/01/16 16:13 16:43 Temperature 98.6 F 98.6 F Pulse Rate 85 82 Pulse Rate [ Left] Respiratory 17 16 Rate Blood Pressure 106/75 108/76 Blood Pressure [Left Arm] O2 Sat by Pulse 99 98 Oximetry - Labs CBC & BMP: 07/31/16 09:46 05/20/17 06:55 Labs: Abnormal lab results 07/31/16 08/01/16 Range/Units 18:59 10:23 Lactate Dehydrogenase 212 H (91-180) units/L Crossmatch See Detail
[2016-08-01 19:20] LABS: Hematocrit 22.5 % (30.3-42.9); Hemoglobin 7.4 gm/dl (10.1-14.3)
--- NOTE | 2016-08-02 09:21 | Progress Note ---
Assessment and Plan 66 year old S/P ORIF hip c TFN nail. Had transfusion due to low post op Hct. Wound Ok. Waiting for DC. Subjective Date of service: 08/02/16 Principal diagnosis: Fx proximal femoral shaft Objective Vital signs: Vital Signs - 12hr 08/02/16 08/02/16 00:00 07:41 Temperature 98.2 F 98.9 F Pulse Rate [ 74 73 Left] Respiratory 18 16 Rate Blood Pressure 131/74 132/78 [Left Arm] O2 Sat by Pulse 95 97 Oximetry - Labs CBC & BMP: 08/02/16 10:57 07/30/16 06:55 Labs: Abnormal lab results 08/01/16 08/01/16 Range/Units 10:23 18:57 Hgb 7.4 L (10.1-14.3) gm/dl Hct 22.5 L (30.3-42.9) % Crossmatch See Detail
--- NOTE | 2016-08-02 09:53 | Event Note ---
Date: 08/02/16 Patient seen and examined. Patient's discharge was held secondary to left lower extremity swelling. Patient also changed her mind and agreed to undergo blood transfusion which was implemented. Patient underwent Doppler ultrasound which was negative for DVT. Patient was re-evaluated by orthopedics and found to have no acute findings. Please refer to discharge summary on 07/31/16.
[2016-08-02 11:43] LABS: Basophils % (Auto) 1.3 % (0.0-1.8); Eosinophils % (Auto) 3.4 % (0.0-4.3); Hematocrit 25.3 % (30.3-42.9); Hemoglobin 8.5 gm/dl (10.1-14.3); Mean Corpuscular HGB Conc 34 % (30-34); Mean Corpuscular Hemoglobin 28 pg (28-32); Mean Corpuscular Volume 82 fl (79-97); Platelet Count 209 K/mm3 (140-440); Red Blood Count 3.08 M/mm3 (3.65-5.03); Red Cell Distribution Width 14.2 % (13.2-15.2); White Blood Count 8.3 K/mm3 (4.5-11.0)
[2016-08-02] MEDS: ASPIRIN PO SCH (13:16)
[2016-08-02] MEDS: COLACE PO SCH (13:16)
[2016-08-02] MEDS: PEPCID PO SCH (13:17)
[2016-08-02] MEDS: FERGON PO SCH (13:17)
[2016-08-02] MEDS: THERAGRAN Tab PO SCH (13:17)
[2016-08-02 15:39] VITALS: BP 122/76
== END 2016-08-02 16:17 | disposition home health service (06) | DRG 481 ==
LOC: ED 10:39 → 2B-SURG 13:22
PROVIDERS: ADMIT Internal Medicine; ATTEND Hospitalist
PROC: 0QS734Z Reposition Left Upper Femur with Internal Fixation Device, Percutaneous Approach (ICD-10-PCS; principal; 2016-07-30)
PROC: 30233N1 Transfusion of Nonautologous Red Blood Cells into Peripheral Vein, Percutaneous Approach (ICD-10-PCS; 2016-08-01)
DX: S72.142A Displaced intertrochanteric fracture of left femur, initial encounter for closed fracture (principal); D62 Acute posthemorrhagic anemia; W01.0XXA Fall on same level from slipping, tripping and stumbling without subsequent striking against object, initial encounter; Z88.8 Allergy status to other drugs, medicaments and biological substances; Y93.89 Activity, other specified; Y92.89 Other specified places as the place of occurrence of the external cause; Y99.8 Other external cause status
CPT/HCPCS: 36415; 71010; 80048; 80053; 82248; 83615; 85014; 85018; 85025; 85045; 85610; 85730; 86850; 86900; 86901; 86920; 93005; 93010; 96372; C1713; C1769; J0690; J1100; J1170; J1650; J1885; J2250; J2270; J2405; J2704; J7030; J7040; J7120; P9016